=== PATIENT | female | born 1955 | race Hispanic/Latino ===

== ENCOUNTER 2024-01-24 09:14 | Emergency (ER) | payer MEDICARE, OTHER, SELFPAY ==
[2024-01-24 09:28] VITALS: BP 128/70
--- NOTE | 2024-01-24 10:21 | ED.GENMED ---
History of Present Illness
General
Chief Complaint: Fall
Source: patient
Exam Limitations: none
Time Seen by Provider: 01/24/24 09:59
Nursing documentation reviewed up to this point in time: agreed with
History of Present Illness
History of Present Illness:
68-year-old female past medical history of hypertension presenting to the emergency department today with concerns of ongoing right-sided hip and knee discomfort over the past 2 weeks after tripping down the stairs. Denies hitting her head any loss
of consciousness numbness or weakness. Claims it is uncomfortable when ambulating but able to ambulate.
Review of Systems
Review of Systems
Allergies reviewed?: Yes
All Other Systems: ROS reviewed and negative except as documented in HPI and ROS
Phy Exam
Physical Exam
Physical Exam:
GENERAL: Alert , in no apparent distress
EYE: pupils equal and reactive
NECK: Supple, no significant adenopathy.
ENT: o/p clr, mmm.
CARDIAC: Regular rate and rhythm .
LUNGS: Clear breath sounds bilaterally, no acute respiratory distress, no wheezes/rales/rhonchi
ABDOMEN: Soft, without focal tenderness, no r/g, no cvat
NEUROLOGICAL: Alert and oriented, no focal neuro deficits
SKIN: Warm and dry, skin intact.
MUSCULOSKELETAL: No edema, well perfused. Good range of motion and strength throughout the lower extremities.
PSYCH: Normal and appropriate interaction.
Course
Orders/Labs/Results
Orders:
Orders
01/24/24 09:40
CR Hips KALPESH w/wo Pel 3-4 Vw Urgent
Comment:
Reason For Exam: s/p fall
Include a pelvis x-ray?: Yes
CR Knee - Left 4 Or More View* Urgent
Comment:
Reason For Exam: s/p fall pain
CR Knee- Right 4 Or More View* Urgent
Comment:
Reason For Exam: s/p fall pain
01/24/24 10:40
Walker [Treatment- Walker] ONCE
Vital Signs
Initial and Last Documented VS:
Initial Vital Signs
Temp Pulse Resp BP Pulse Ox
97.8 F 67 18 128/70 98
01/24/24 09:28 01/24/24 09:28 01/24/24 09:28 01/24/24 09:28 01/24/24 09:28
Last Documented Vital Signs
Temp Pulse Resp BP Pulse Ox
97.8 F 67 18 128/70 98
01/24/24 09:28 01/24/24 09:28 01/24/24 09:28 01/24/24 09:28 01/24/24 09:28
MDM/Problems Addressed
MDM/Problems Addressed:
68-year-old female presenting to the emergency department today with concerns of right hip right knee discomfort as well as some left hip discomfort over the past 2 weeks after falling down a few stairs at home. Did not hit her head did not lose
consciousness no neck pain no numbness or weakness. Ongoing achiness but able to ambulate. Here vital signs are normal patient well-appearing no distress able to move and range her lower extremities bilaterally with no significant distress or
discomfort when doing so. No redness or warmth no signs of infection. X-rays without evidence of acute fracture. Patient with likely soft tissue injury. She was recommended to follow-up closely with Ortho and potentially PT. Return precautions
given.
*Critical Care Note
Total Time (30-74mins, 75-104mins- exclusive of procedures): Not Applicable
ED Attending Note
-
Portions of this chart may have been created with voice recognition software.� Occasional wrong word or��sound alike� substitutions may have occurred due to the inherent limitations of voice recognition software.
Discharge Plan
Departure
Patient Disposition: Home (Routine Discharge)
Date of Disposition: 01/24/24
Time of Disposition: 10:42
Patient with high blood pressure during this ER visit?: No
Condition: Good
Covid-19: Not Applicable
Discharge Problem:
Hip sprain, Sprain of knee
Instructions: Preventing falls in adults
Referrals:
Sam Steinberg MD [Active] - Follow up in 5-7 days
UNKNOWN - PT DOES,NOT KNOW [Family Provider] -
Activity Restrictions/Additional Instructions:
You came to the emergency department today after a fall. You likely have a sprain to your hip and knee. Please rest ice compress and elevate and follow-up closely with orthopedics and PT for further management. Return to the emergency department
for any worsening, new or concerning symptoms.
Interventions
Interventions:
*ED COVID-19 Vaccine History Last Done: 01/24/24 09:28
Discharge Date and Time
Print Language: PASHTO
== END 2024-01-24 11:18 | disposition home or self-care (01) ==
LOC: EMR 09:14
PROVIDERS: EMERGENCY PHYSICIAN Emergency Medicine
DX: S73.101A Unspecified sprain of right hip, initial encounter (principal); S83.91XA Sprain of unspecified site of right knee, initial encounter; W19.XXXA Unspecified fall, initial encounter; I10 Essential (primary) hypertension
CPT/HCPCS: 99283; 73522; 73564